=== PATIENT | female | born 1990 | race Hispanic/Latino ===

== ENCOUNTER 2019-02-06 03:43 | Emergency (ER) | payer BC ==
[2019-02-06 04:51] LABS: BLOOD UREA NITROGEN 11 mg/dl (7-17); GFR NON-AFRICAN AMERICAN > 60
--- NOTE | 2019-02-06 04:52 | ED PDOC ---
HPI: General Adult Time Seen by Provider: 02/06/19 03:49 Chief Complaint (Nursing): Female Genitourinary Chief Complaint (Provider): Female Genitourinary History Per: Patient History/Exam Limitations: no limitations Onset/Duration Of Symptoms: Hrs Current Symptoms Are (Timing): Still Present Additional Complaint(s): Patient is a 28 y/o female with G1:P1 who presents to the ED for evaluation of heavy vaginal bleeding without pain onset today. Patient states one week ago she had an episiotomy and stitches were placed. Patient was seen at [place] following giving for mild spotting. Last night, following her visit, patient had a gush of blood flow down her legs in the middle of the night. Patient claims she also felt weak and dizzy. Patient denies abdominal pain, vaginal discharge, and fever. Of note, patient states when giving the placenta had to be removed and was told all placental tissue came out intact. PCP: Dr. Buddy Dhillon Past Medical History Reviewed: Historical Data, Nursing Documentation, Vital Signs Vital Signs: Last Vital Signs Temp 97.7 F 02/06/19 03:46 Pulse 87 02/06/19 03:46 Resp 16 02/06/19 03:46 BP 151/81 H 02/06/19 03:46 Pulse Ox 99 02/06/19 03:46 Primary Care Provider: Buddy Dhillon - Medical History PMH: No Chronic Diseases - Surgical History Other surgeries: episiotomy - Family History Family History: States: No Known Family Hx - Allergies Allergies/Adverse Reactions: Allergies Allergy/AdvReac Type Severity Reaction Status Date / Time No Known Allergies Allergy Verified 02/06/19 03:51 Review of Systems ROS Statement: Except As Marked, All Systems Reviewed And Found Negative Constitutional: Negative for: Fever Gastrointestinal: Negative for: Abdominal Pain Genitourinary Female: Positive for: Vaginal Bleeding (heavy), Other (mild spotting). Negative for: Vaginal Discharge Neurological: Positive for: Weakness, Dizziness Physical Exam - Reviewed Nursing Documentation Reviewed: Yes Vital Signs Reviewed: Yes - Physical Exam Appears: Positive for: Non-toxic, No Acute Distress Head Exam: Positive for: ATRAUMATIC, NORMAL INSPECTION, NORMOCEPHALIC Skin: Positive for: Normal Color (mildly pale), Warm Eye Exam: Positive for: EOMI, Normal appearance, PERRL Neck: Positive for: Normal, Painless ROM, Supple Cardiovascular/Chest: Positive for: Regular Rate, Rhythm. Negative for: Murmur Respiratory: Positive for: Normal Breath Sounds. Negative for: Respiratory Distress Gastrointestinal/Abdominal: Positive for: Normal Exam, Soft. Negative for: [place] derness Pelvic Exam: Positive for: External Exam Normal (no active bleeding or visible tissue), Other (dried blood around labia and legs; stitches to right side of introitus; cervix is bruised and enlarged) Back: Positive for: Normal Inspection. Negative for: L CVA Tenderness, R CVA Tenderness Extremity: Positive for: Normal ROM. Negative for: Pedal Edema, Deformity Neurological/Psych: Positive for: Alert, Oriented (x3) Comments: SHERYL Galindo assisted in Pelvic Exam - Laboratory Results Result Diagrams: 02/06/19 04:32 02/06/19 04:32 - ECG O2 Sat by Pulse Oximetry: 99 (RA) Pulse Ox Interpretation: Normal Medical Decision Making Medical Decision Making: Time: 0432 Impression: Episode of large amounts of bleeding. Likely possible passage of retained blood clot. Plan: r/o Anemia BMP CBC Reassess Most likely discharge home. Time: 0525 Hemoglobin and hematocrit stable. No return of bleeding. Time: 0530 Discussed lab results with patient. Patient states she has been in touch with Bag Machine Helper who recommends US since patient manually removed placenta. US is needed to confirm there are no more placental remains present. Time: 0700 Patient endorsed from provider to Leida Silva MD. Labs are normal. Patient without recurrence in bleeding. Currently pending pelvic US to r/o retention of placental material. Awaiting US tech for exam. Scribe Attestation: Documented by Hernesto Dick, acting as a scribe for Provider Scribe Attestation: All medical record entries made by the Scribe were at my direction and personally dictated by me. I have reviewed the chart and agree that the record accurately reflects my personal performance of the history, physical exam, medical decision making, and the department course for this patient. I have also personally directed, reviewed, and agree with the discharge instructions and disposition. Disposition - Clinical Impression Clinical Impression: hemorrhage of vagina - Patient ED Disposition Is Patient to be Admitted: Transfer of Care Discussed With DrConner: Leida Silva - Disposition Disposition: Transfer of Care Disposition Time: 07:00 Condition: STABLE Additional Instructions: Follow up with ore bridge operator in one day. Return to the emergency department if symptoms return. Instructions: Bleeding Forms: [facility] (Cit[place]) Print Language: WOLOF
[2019-02-06 05:15] LABS: BASO % 0.5 % (0.0-2.0); EOS # 0.2 K/uL (0.0-0.7); EOS % 3.5 % (0.0-4.0); HEMOGLOBIN 11.7 g/dL (12.0-16.0); LYMPH # 1.1 K/uL (1.0-4.3); LYMPH % 14.9 % (20.0-40.0); MEAN CELL VOLUME 94.6 fl (81.0-99.0); MEAN CORPUSCULAR HEMOGLOBIN 32.3 pg (27.0-31.0); MEAN CORPUSCULAR HGB CONC 34.1 g/dL (33.0-37.0); MEAN PLATELET VOLUME 7.9 fl (7.2-11.7); MONO # 0.6 K/uL (0.0-0.8); MONO % 7.8 % (0.0-10.0); NEUT # 5.2 K/uL (1.8-7.0); NEUT % 73.3 % (50.0-75.0); NRBC % 0.1 % (0.0-0.0); RBC 3.62 Mil/uL (3.80-5.20); RED CELL DISTRIBUTION WIDTH 13.6 % (11.5-14.5); WHITE BLOOD COUNT 7.1 K/uL (4.8-10.8)
--- NOTE | 2019-02-06 07:37 | ED PDOC ---
- Laboratory Results Result Diagrams: 02/06/19 04:32 02/06/19 04:32 - ECG O2 Sat by Pulse Oximetry: 99 (RA) Medical Decision Making Medical Decision Making: Time: 07 --Patient is endorsed to provider pending US pelvis/transvaginal and final disposition. Time: 912 --US AD/pelvis/transvaginal FINDINGS: UTERUS: Measures 14.5 x 10.4 x 5.7 cm. No uterine mass. Delete ENDOMETRIUM: Measures 7 mm in diameter. There are low-level echoes within the endometrial cavity without demonstrable associated vascularity. Likely blood products but no evidence of retained products of conception. CERVIX: No cervical abnormality identified. RIGHT OVARY: Not visualized LEFT OVARY: Not visualized FREE FLUID: No significant free fluid noted. OTHER FINDINGS: None. IMPRESSION: Small amount of hypoechoic fluid within the endometrial cavity. No evidence of retained products of conception. Otherwise unremarkable. Time: 1030 --Case discussed with Dr. Jennifer Kendall, ABSORPTION PLANT OPERATOR. States that she saw the report and agrees with plan to discharge patient home with plan to follow up in office on 02/10/19. Scribe Attestation: Documented by Trena Grayson, acting as a scribe for Leida Silva MD. Provider Scribe Attestation: All medical record entries made by the Scribe were at my direction and pers onally dictated by me. I have reviewed the chart and agree that the record accurately reflects my personal performance of the history, physical exam, medical decision making, and the department course for this patient. I have also personally directed, reviewed, and agree with the discharge instructions and disposition. Disposition - Clinical Impression Clinical Impression: bleeding - POA Present On Arrival: None - Disposition Referrals: Buddy Dhillon MD [Staff Provider] - Disposition: Routine/Home Disposition Time: 10:00 Condition: STABLE Additional Instructions: Follow up with scratcher in one day. Return to the emergency department if symptoms return. Instructions: Bleeding Forms: [facility] (Polish) Print Language: PORTUGUESE
--- NOTE | 2019-02-06 09:39 | US ---
Date of service: 02/06/2019 HISTORY: rule out retained products COMPARISON: None available. TECHNIQUE: An though vaginal and transabdominal FINDINGS: UTERUS: Measures 14.5 x 10.4 x 5.7 cm. No uterine mass. Delete ENDOMETRIUM: Measures 7 mm in diameter. There are low-level echoes within the endometrial cavity without demonstrable associated vascularity. Likely blood products but no evidence of retained products of conception. CERVIX: No cervical abnormality identified. RIGHT OVARY: Not visualized LEFT OVARY: Not visualized FREE FLUID: No significant free fluid noted. OTHER FINDINGS: None. IMPRESSION: Small amount of hypoechoic fluid within the endometrial cavity. No evidence of retained products of conception. Otherwise unremarkable.
[2019-02-06 10:41] VITALS: PULSE 70; RESP 20; TEMP 98.6; O2SAT 98
[2019-02-06 10:42] VITALS: BP 118/70
== END 2019-02-06 10:42 | disposition home or self-care (01) ==
LOC: H.ER 03:43
DX: N93.9 Abnormal uterine and vaginal bleeding, unspecified (principal)